=== PATIENT | male | born 1955 | race Caucasian/White ===

== ENCOUNTER 2016-03-29 21:48 | Inpatient (IN) | payer OTHER, MEDICARE ==
--- NOTE | 2016-03-29 21:52 | PDOC ---
History of Present Illness - General History Source: Patient Exam Limitations: No Limitations - History of Present Illness Initial Comments: 03/29/16 21:52 The patient is a 60 year old male, with a significant past medical history of COPD, HTN, and diabetes who presents to the emergency department after inhaling fumes, occurring today around 1:30pm. The patient reports helping a friend fixed a sink when he inhaled fumes, after pouring draino into the sink, resulting in a cough and SOB. He reports using his inhaler two times with only mild improvement of his symptoms. He reports his symptoms have been progressively getting better since their onset. He notes having trouble breathing (having trouble catching his breath) since the incident and notes having mild chest tightness. He reports this feeling slightly like his previous COPD. He denies any recent fevers, chills, headache or dizziness. He denies any recent nausea, vomit, diarrhea or constipation. PAST MEDICAL HISTORY: COPD, HTN, DM PAST SURGICAL HISTORY: No significant history. FAMILY HISTORY: No pertinent history. SOCIAL HISTORY: Patient lives with family and is employed. Current smoker. MEDICATIONS: Reviewed. ALLERGIES: As per nursing notes. ROS General: No fevers or chills, no weakness, no weight loss HEENT: No change in vision. No sore throat. No ear pain CardioVascular: +chest tightness and difficulty breathing Respiratory:+cough +wheezing. Gastrointestinal: No nausea, vomiting, diarrhea or constipation. No rectal bleeding Genitourinary: No dysuria, hematuria, or frequency Musculoskeletal: No joint or muscle pain or swelling Neurologic: No headache, vertigo, dizziness or loss of consciousness Psychiatric: No depression Skin: No rashes or easy bruising Endocrine: no increased thirst or abnormal weight change Allergic: no skin or latex allergy All other systems reviewed and normal Exam: General: Well-nourished well-developed individual, anxious appearing HEENT: Throat: Mild erythema at posterior pharynx. Smoker's tongue . No blistering of tongue Neck: Supple, no meningeal signs, no lymphadenopathy Eyes: Pupils equal reactive and round, extraocular motion intact Chest: Nontender to palpation Cardiac: +Tachycardia. S1-S2 normal, regular rate and rhythm, no murmurs rubs or gallops Respiratory: +Tachypnea. Decreased breath sounds bilaterally in all lung fisher with diffuse expiratory wheezing Abdomen: Soft, nondistended, normal bowel sounds, nontender to palpation diffusely Extremities: Warm, dry, no cyanosis, clubbing, or edema Skin: No rashes Neuro: Alert and oriented x3, nonfocal exam, grossly intact, normal gait Psych: Normal mood and affect <Don Stark - Last Filed: 03/29/16 21:57> - General History Source: Patient Exam Limitations: No Limitations - History of Present Illness Initial Comments: 03/29/16 23:08 A portion of this note was documented by scribe services under my direction. I have reviewed the details of the note, within reason, and agree with the documentation. The case summary and management plan written by me. Chest x-ray reviewed by me no acute pathology no significant change from prior x -ray of 03/06/2016. * Assessment and plan: This is a 60-year-old male who comes in complaining of shortness of breath/COPD exacerbation secondary to inhaling some Drano fumes. Patient also experienced some chest pain. Patient's cardiogram is normal sinus rhythm at a rate of [address]-T wave changes. Patient's chest x-ray is unchanged from prior. Patient given some DuoNeb's and oxygen with improvement of his symptoms but still has diffuse wheezing throughout. Patient will be admitted to a telemetry bed discussed with Dr. Noriega who was covering for Dr. Augustin who agrees to the admission. 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 Time Seen by Provider: 03/29/16 21:51 Past History <Don Stark - Last Filed: 03/29/16 21:57> <Aysha Mendoza I - Last Filed: 03/29/16 23:14> - Past Medical History Allergies/Adverse Reactions: Allergies Allergy/AdvReac Type Severity Reaction Status Date / Time No Known Allergies Allergy Unverified 03/29/16 21:56 Home Medications: Ambulatory Orders Albuterol 0.083% Nebulizer Tari [Ventolin 0.083% Nebulizer Soln -] 1 amp IH ASDIR 03/29/16 Atorvastatin Ca [Lipitor] 20 mg PO HS 03/29/16 Metformin HCl [Glucophage] 1,000 mg PO BID 03/29/16 Zolpidem Tartrate [Ambien] 10 mg PO DAILY 03/29/16 ED Treatment Course - LABORATORY CBC & Chemistry Diagram: 03/29/16 22:06 03/29/16 22:06 <Aysha Mendoza I - Last Filed: 03/29/16 23:14> *DC/Admit/Observation/Transfer - Attestations Scribe Attestion: 03/29/16 21:52 Documentation prepared by Don Stark, acting as medical office receptionist assistant for Aysha Mendoza MD. <Don Stark - Last Filed: 03/29/16 21:57> - Discharge Dispostion Admit: Yes <Aysha Mendoza I - Last Filed: 03/29/16 23:14> Diagnosis at time of Disposition: Obstructive chronic bronchitis with exacerbation, Chest pain - Discharge Dispostion Condition at time of disposition: Fair
[2016-03-29 21:56] VITALS: BMI 31.5
[2016-03-29] MEDS ORDERED: ASPIRIN 81 MG CHEWABLE TABLETS PO ONE (22:08)
[2016-03-29] MEDS: ALBUTEROL SO4 2.5/IPRATROPIUM 0.5 INH SOL 3 ML VIAL.NEB. NEB SCH ×2 (22:09→23:00)
[2016-03-29] MEDS ORDERED: ALBUTEROL SO4 2.5/IPRATROPIUM 0.5 INH SOL 3 ML VIAL.NEB. NEB ONE (22:11)
[2016-03-29 22:15] LABS: BASOPHIL 2.3 % (0-2.0); EOSINOPHIL 0.8 % (0-4.5); MCH 29.8 pg (25.7-33.7); MCHC 33.8 g/dl (32.0-35.9); MEAN CELL VOLUME 88.2 fl (80-96); MEAN PLT VOLUME 7.9 fl (7.5-11.1); NEUTROPHILS 64.9 % (42.8-82.8); PLATELET COUNT 255 K/MM3 (134-434); RDW 13.1 % (11.9-15.9); WHITE BLOOD COUNT 10.4 K/mm3 (4.0-10.0)
[2016-03-29 22:32] LABS: ALBUMIN 4.1 g/dl (3.5-5.0); ALK PHOS 68 U/L (32-92); ANION GAP 8 (8-16); CALCIUM 9.3 mg/dl (8.4-10.2); CO2 28 mmol/L (22-28); CPK(DFH) 173 IU/L (38-174); CREATININE 0.8 mg/dl (0.6-1.3); GLUCOSE,RANDOM 107 mg/dl (74-106); SGOT/AST 21 U/L (10-42); SGPT/ALT 22 U/L (10-40)
[2016-03-29 23:00] LABS: CK MB 2.8 ng/ml (0.3-4.0); TROPONIN I (DFP) < 0.03 ng/ml (0.03-0.50)
[2016-03-29] MEDS ORDERED: ACETAMINOPHEN 325 MG TABLET (FP) PO PRN (23:18)
[2016-03-29] MEDS ORDERED: ZOLPIDEM TARTRATE 5 MG TABLET PO PRN (23:39)
[2016-03-30] MEDS: ALBUTEROL SO4 2.5/IPRATROPIUM 0.5 INH SOL 3 ML VIAL.NEB. NEB SCH ×3 (00:52→11:34)
[2016-03-30 06:47] VITALS: BP 122/68; TEMP 98.6
[2016-03-30] MEDS ORDERED: metFORMIN HCL 500 MG TABLET (FP) PO SCH (07:00)
[2016-03-30] MEDS: INSULIN SLIDING SCALE (NOVOLOG) 1 VIAL SQ SCH ×2 (07:03→11:53)
[2016-03-30 08:16] LABS: BASOPHIL 0.5 % (0-2.0); EOSINOPHIL 1.5 % (0-4.5); MCH 29.9 pg (25.7-33.7); MCHC 33.7 g/dl (32.0-35.9); MEAN CELL VOLUME 88.7 fl (80-96); MEAN PLT VOLUME 7.9 fl (7.5-11.1); NEUTROPHILS 68.4 % (42.8-82.8); PLATELET COUNT 229 K/MM3 (134-434); RDW 13.3 % (11.9-15.9); WHITE BLOOD COUNT 8.3 K/mm3 (4.0-10.0)
[2016-03-30 08:42] LABS: ALBUMIN 3.7 g/dl (3.5-5.0); ALK PHOS 63 U/L (32-92); ANION GAP 8 (8-16); BILIRUBIN,TOTAL 0.4 mg/dl (0.2-1.0); CALCIUM 9.1 mg/dl (8.4-10.2); CO2 27 mmol/L (22-28); CREATININE 0.7 mg/dl (0.6-1.3); GLUCOSE,RANDOM 117 mg/dl (74-106); SGOT/AST 20 U/L (10-42); SGPT/ALT 21 U/L (10-40); TOT PROT 6.3 g/dl (6.4-8.3)
--- NOTE | 2016-03-30 09:16 | HP ---
Admitting History and Physical - Primary Care Physician PCP: Brooks Augustin - Admission Chief Complaint: I inhaled some fumes History of Present Illness: Mr Arshad is a very pleasant 60 year old male who comes in with shortness of breath after breathing some fumes. He was helping his friend drain a sink and while using draino inhaled some of the fumes and became short of breath. He says he was wheezing with it. He says his chest felt tight. He had a non- productive cough. He came in for further evaluation and was admitted. He denies fevers, chills, lightheadedness, dizziness, passing out, chest pain, nausea, vomiting, diarrhea, constipation, difficulty or pain on urination, or swelling. He has chronic back pain that is unchanged. History Source: Patient Limitations to Obtaining History: No Limitations - Past Medical History Pulmonary: Yes: COPD Endocrine: Yes: Diabetes Mellitus - Past Surgical History Past Surgical History: Yes: Appendectomy - Smoking History Smoking history: Current every day smoker Have you smoked in the past 12 months: Yes Aproximately how many cigarettes per day: 20 - Alcohol/Substance Use Hx Alcohol Use: No History of Substance Use: reports: None - Social History Usual Living Arrangement: Yes: Alone ADL: Independent History of Recent Travel: No Home Medications - Allergies Allergies/Adverse Reactions: Allergies Allergy/AdvReac Type Severity Reaction Status Date / Time No Known Allergies Allergy Unverified 03/29/16 21:56 - Home Medications Home Medications: Ambulatory Orders Albuterol 0.083% Nebulizer Tari [Ventolin 0.083% Nebulizer Soln -] 1 amp IH ASDIR 03/29/16 Atorvastatin Ca [Lipitor] 20 mg PO HS 03/29/16 Metformin HCl [Glucophage] 1,000 mg PO BID 03/29/16 Zolpidem Tartrate [Ambien] 10 mg PO DAILY 03/29/16 Family Disease History - Family Disease History Family Disease History: Heart Disease: Mother Review of Systems Findings/Remarks: Full review of systems obtained, as per HPI and otherwise negative. Physical Examination Vital Signs: Vital Signs Temperature 98.6 F 03/30/16 05:19 Pulse Rate 80 03/30/16 05:19 Respiratory Rate 18 03/30/16 05:19 Blood Pressure 122/68 03/30/16 05:19 O2 Sat by Pulse Oximetry (%) 96 03/30/16 08:33 Constitutional: Yes: No Distress, Calm, Obese Eyes: Yes: Conjunctiva Clear, EOM Intact HENT: Yes: Atraumatic, Normocephalic Cardiovascular: Yes: Regular Rate and Rhythm. No: Gallop, Murmur, Rub Respiratory: Yes: Regular, Rhonchi (slight). No: Rales, Tachypnea, Wheezes Gastrointestinal: Yes: Normal Bowel Sounds, Soft. No: Distention, Tenderness Extremities: Yes: WNL Edema: No Labs: CBC, BMP 03/30/16 07:00 03/30/16 07:00 Imaging - Results Chest X-ray: Report Reviewed, Image Reviewed Problem List - Problems (1) COPD exacerbation Assessment/Plan: -patient presents with COPD exacerbation secondary to irritation -improving on duonebs -not requiring oxygen -continue duonebs -will have patient ambulate today and see if he is still short of breath -if he is feeling better, will consider discharge as he is saying he is much improved -consider short course of prednisone Code(s): J44.1 - CHRONIC OBSTRUCTIVE PULMONARY DISEASE W (ACUTE) EXACERBATION (2) Diabetes Assessment/Plan: -continue metformin -he states he is on a second medication, when going through the medications he says it is either glipizide or glyburide but he is not sure -continue diabetic diet -possible discharge today Code(s): E11.9 - TYPE 2 DIABETES MELLITUS WITHOUT COMPLICATIONS (3) Tobacco abuse Assessment/Plan: -counselling given and encouraged cessation -patient says he will quit "soon" Code(s): Z72.0 - TOBACCO USE (4) Back pain Assessment/Plan: -chronic and unchanged -continue home regimen Code(s): M54.9 - DORSALGIA, UNSPECIFIED
--- NOTE | 2016-03-30 09:37 | DS ---
Physical Examination Vital Signs: Vital Signs Temperature 98.6 F 03/30/16 05:19 Pulse Rate 80 03/30/16 05:19 Respiratory Rate 18 03/30/16 05:19 Blood Pressure 122/68 03/30/16 05:19 O2 Sat by Pulse Oximetry (%) 96 03/30/16 08:33 Labs: CBC, BMP 03/30/16 07:00 03/30/16 07:00 Discharge Summary Reason For Visit: CHEST PAIN/COPD EXACERBATION Current Active Problems Back pain (Acute) COPD exacerbation (Acute) Chest pain (Acute) Diabetes (Acute) Tobacco abuse (Acute) Hospital Course: Mr Arshad was admitted for COPD exacerbation secondary to inhalation of chemical fumes. He was given duonebs while here and improved. He did not require oxygen. He was able to ambulate without shortness of breath. He is safe for discharge home today. Will give a short course of low dose prednisone and he is to schedule his albuterol over the next 3 days. He is encouraged to stop smoking altogether, but if unable to quit at least stop smoking over the next week to help with healing of his lungs. He is safe for discharge home. Condition: Good - Instructions Diet, Activity, Other Instructions: resume previous diet and activity. Stop smoking, but at least do not smoke over the next week secondary to COPD exacerbation. Use albuterol three times a day for the next 3 days and then go back to using as previously prescribed. Referrals: Brooks Augustin MD [Staff Physician] - Disposition: HOME - Home Medications Comprehensive Discharge Medication List: Ambulatory Orders Albuterol 0.083% Nebulizer Tari [Ventolin 0.083% Nebulizer Soln -] 1 amp IH ASDIR 03/29/16 Atorvastatin Ca [Lipitor] 20 mg PO HS 03/29/16 Metformin HCl [Glucophage] 1,000 mg PO BID 03/29/16 Zolpidem Tartrate [Ambien] 10 mg PO DAILY 03/29/16 Prednisone [Deltasone -] 20 mg PO DAILY #3 tablet 03/30/16
[2016-03-30] MEDS ORDERED: PANTOPRAZOLE 40 MG TABLET (FP) PO SCH (10:00)
[2016-03-30] MEDS ORDERED: PATIENT'S OWN MEDICATION (NON-FORMULARY) (Zolpidem Tartrate [Ambien] 10 MG) PO SCH (10:00)
[2016-03-30] MEDS ORDERED: PATIENT'S OWN MEDICATION (NON-FORMULARY) (Metformin Hcl [Glucophage] 1,000 MG) PO SCH (10:00)
--- NOTE | 2016-03-30 10:10 | EKG ---
Test Reason : Blood Pressure : / mmHG Vent. Rate : 090 BPM Atrial Rate : 090 BPM P-R Int : 192 ms QRS Dur : 098 ms QT Int : 362 ms P-R-T Axes : 071 -14 074 degrees QTc Int : 442 ms SINUS RHYTHM WITH OCCASIONAL PREMATURE VENTRICULAR COMPLEXES POSSIBLE LEFT ATRIAL ENLARGEMENT OTHERWISE NORMAL ECG WHEN COMPARED WITH ECG OF 19-DEC-2005 14:17, PREMATURE VENTRICULAR COMPLEXES ARE NOW PRESENT Confirmed by KYLAH RODRIGUEZ, JUAN DANIEL ([id number]) on 03/30/2016 10:10:05 AM Referred By: MD FELIX Confirmed By:JUAN DANIEL MONTERO MD
[2016-03-30 10:55] VITALS: PULSE 88
[2016-03-30] MEDS ORDERED: ATORVASTATIN CA 20 MG TABLET (FP) PO SCH (22:00)
== END 2016-03-30 13:53 | disposition home or self-care (01) | DRG 192 ==
LOC: FER 21:48 → FM/S 23:31
PROVIDERS: ADMIT Specialist; ATTEND Specialist
DX: J44.1 Chronic obstructive pulmonary disease with (acute) exacerbation (principal); I10 Essential (primary) hypertension; E11.9 Type 2 diabetes mellitus without complications; R07.9 Chest pain, unspecified; Z79.84 Long term (current) use of oral hypoglycemic drugs; F17.210 Nicotine dependence, cigarettes, uncomplicated; M54.9 Dorsalgia, unspecified
CPT/HCPCS: 36415; 71010-TC; 80053; 82550; 82553; 84484; 85025; 93005; 94640; 99285-25

== ENCOUNTER 2024-06-16 18:19 | Inpatient (IN) | payer OTHER, BC ==
[2024-06-16 19:29] LABS: EPITHELIAL CELLS 0-5 /hpf
[2024-06-16 19:45] LABS: ABSOLUTE IMMATURE GRANULOCYTES 0.03 x10^3/uL (0.0-0.031); BASOPHILS # 0.02 x10^3/uL (0.01-0.08); EOSINOPHIL % 0.6 % (0.8-7.0); EOSINOPHILS # 0.07 x10^3/uL (0.04-0.54); HEMATOCRIT 49.5 % (40.1-51.0); HEMOGLOBIN 17.1 g/dL (13.7-17.5); MCHC 34.5 g/dl (32.3-36.5); MEAN CELL VOLUME 89.2 fl (79.0-92.2); MEAN PLT VOLUME 10.4 fl (9.4-12.4); MONOCYTE # 1.01 x10^3/uL (0.30-0.82); MONOCYTE % 8.8 % (5.3-12.2); RDW 12.9 % (12.2-16.4)
[2024-06-16 19:49] LABS: PLATELET COUNT 206 x10^3/uL (163-337)
[2024-06-16] MEDS ORDERED: ACETAMINOPHEN INJECTION 100 ML ONE (20:10)
[2024-06-16] MEDS: ACETAMINOPHEN 1000 MG/100 ML BAG IVPB ONE (20:10)
[2024-06-16] MEDS: SODIUM CHLORIDE 1,000 ML IV STA (20:10)
[2024-06-16] MEDS ORDERED: cefTRIAXone SODIUM 1 GM VIAL ONE (20:20)
[2024-06-16 20:26] LABS: ALBUMIN 4.2 g/dl (3.4-5.0); ALK PHOS 86 U/L (45-117); ANION GAP 11 mmol/L (4-13); BILIRUBIN,TOTAL 0.7 mg/dl (0.2-1); CALCIUM 9.2 mg/dl (8.5-10.1); CHLORIDE 100 mmol/L (98-107); CO2 24 mmol/L (21-32); CREATININE 0.9 mg/dl (0.6-1.3); GLUCOSE,RANDOM 178 mg/dl (74-106); POTASSIUM 4.2 mmol/L (3.5-5.1); SGOT/AST 20 U/L (15-37); SGPT/ALT 25 U/L (7-52); SODIUM 135 mmol/L (136-145); TOT PROT 6.9 g/dl (6.4-8.2)
[2024-06-16] MEDS: CEFTRIAXONE 1,000 MG in DEXTROSE 5%-WATER - 50 ML IVPB ONE (20:26)
[2024-06-16] MEDS ORDERED: DOCUSATE SODIUM 100 MG CAPSULE (FP) PO PRN (21:35)
[2024-06-16] MEDS ORDERED: oxyCODONE HCL 5 MG TABLET PO PRN (22:04)
[2024-06-16] MEDS ORDERED: IBUPROFEN 400 MG TABLET (FP) PO PRN (22:05)
[2024-06-16] MEDS: INSULIN ASPART SLIDING SCALE (NOVOLOG) 1 VIAL SQ SCH (22:55)
[2024-06-16 23:14] VITALS: BMI 33.9
[2024-06-16] MEDS: NICOTINE 21 MG/24 HOURS TOPICAL PATCH TD SCH (23:55)
[2024-06-17] MEDS: PHENAZOPYRIDINE HCL 100 MG TABLET (FP) PO ONE (04:37)
[2024-06-17 06:46] VITALS: RESP 20
[2024-06-17] MEDS ORDERED: IBUPROFEN 400 MG TABLET (FP) PO PRN ×2 (06:46→07:30)
[2024-06-17] MEDS ORDERED: ACETAMINOPHEN 325 MG TABLET (FP) PO PRN ×2 (07:29→07:30)
[2024-06-17 08:01] LABS: HEMATOCRIT 44.9 % (40.1-51.0); HEMOGLOBIN 15.2 g/dL (13.7-17.5); MCHC 33.9 g/dl (32.3-36.5); MEAN PLT VOLUME 9.2 fl (9.4-12.4); PLATELET COUNT 201 x10^3/uL (163-337); RDW 13.1 % (12.2-16.4)
[2024-06-17] MEDS: TAMSULOSIN HCL 0.4 MG CAP PO SCH (08:21)
[2024-06-17 08:35] LABS: INR 1.07 (0.83-1.09); PROTHROMBIN TIME (PATIENT) 11.9 SEC (9.7-13.0)
[2024-06-17 08:38] LABS: ACTIVATED PTT 29.5 SECONDS (25.2-36.5)
[2024-06-17] MEDS: EMPAGLIFLOZIN (JARDIANCE) 25 MG TABLET PO SCH (09:25)
[2024-06-17] MEDS: CITALOPRAM HYDROBROMIDE 20 MG TABLET PO SCH (09:25)
[2024-06-17] MEDS: ENOXAPARIN NA (PORCINE) 40 MG/0.4 ML DISP.SYRIN SQ SCH (09:25)
[2024-06-17 09:29] LABS: CALCIUM 8.7 mg/dl (8.5-10.1); CREATININE 0.8 mg/dl (0.6-1.3); PHOSPHOROUS 3.3 (2.5-4.9); POTASSIUM 3.8 mmol/L (3.5-5.1)
[2024-06-17] MEDS ORDERED: CEFTRIAXONE 1 GM in DEXTROSE 5%-WATER - 50 ML IVPB SCH (10:00)
[2024-06-17 14:46] VITALS: BP 110/55; PULSE 101; TEMP 98.4
[2024-06-17] MEDS ORDERED: ATORVASTATIN CA 40 MG TABLET (FP) PO SCH (22:00)
== END 2024-06-17 16:20 | disposition home or self-care (01) | DRG 726 ==
LOC: FER 18:19 → FM/S 21:17
PROVIDERS: ADMIT Internal Medicine; ATTEND Internal Medicine
DX: N40.1 Benign prostatic hyperplasia with lower urinary tract symptoms (principal); F11.20 Opioid dependence, uncomplicated; I10 Essential (primary) hypertension; R33.8 Other retention of urine; J44.9 Chronic obstructive pulmonary disease, unspecified; E78.5 Hyperlipidemia, unspecified; M54.9 Dorsalgia, unspecified; E11.9 Type 2 diabetes mellitus without complications; F17.210 Nicotine dependence, cigarettes, uncomplicated; E66.9 Obesity, unspecified; Z68.33 Body mass index [BMI] 33.0-33.9, adult
CPT/HCPCS: 0241U-QW; 36415; 71045-TC-FY; 76775-TC; 76856-TC; 80048; 80053; 81003; 81015; 82962; 83605; 83735; 84100; 85025; 85610; 85730; 86780; 87040; 87086; 87491; 87591; 99291